=== PATIENT | male | born 1965 | race Caucasian/White ===

== ENCOUNTER 2021-08-19 05:55 | Day surgery (SDC) | payer OTHER ==
[2021-08-11 12:49] VITALS: BMI 33.4
[2021-08-19] MEDS ORDERED: ROPIVACAINE HCL/PF 100 MG/20 ML VIAL ONE (06:54)
[2021-08-19] MEDS ORDERED: MIDAZOLAM HCL 2 MG/2 ML SINGLE DOSE VIAL ONE ×2 (06:54→07:59)
[2021-08-19] MEDS ORDERED: EPINEPHrine 1:1,000 1 MG/1 ML - 30ML VIAL (INJECTION) ONE (07:18)
[2021-08-19] MEDS ORDERED: DEXMEDETOMIDINE HCL 200 MCG/2 ML IVPB ONE (07:29)
[2021-08-19] MEDS ORDERED: KETAMINE HCL 500 MG/10 ML VIAL ONE (07:30)
[2021-08-19] MEDS ORDERED: PROPOFOL 20 ML ONE ×4 (07:50→08:15)
[2021-08-19] MEDS ORDERED: BUPIVACAINE HCL/EPINEPHRINE/PF 30 ML VIAL IJ ONE (07:55)
[2021-08-19] MEDS ORDERED: SUCCINYLCHOLINE CHLORIDE 200 MG/10 ML SYRINGE ONE (08:29)
[2021-08-19] MEDS ORDERED: HYDROmorphone HCL/PF 1 MG/ML VIAL ONE (09:09)
[2021-08-19] MEDS ORDERED: ACETAMINOPHEN 1000 MG/100 ML BAG IVPB ONE (10:05)
[2021-08-19] MEDS ORDERED: ONDANSETRON 4 MG/2 ML VIAL IVPUSH PRN (10:05)
[2021-08-19] MEDS ORDERED: oxyCODONE HCL 5 MG TABLET PO PRN (10:05)
[2021-08-19] MEDS ORDERED: LACTATED RINGERS SOLUTION 1,000 ML IV SCH (10:15)
[2021-08-19 10:57] VITALS: TEMP 97.8
[2021-08-19 11:21] VITALS: BP 115/89; PULSE 85
== END 2021-08-19 12:30 | disposition home or self-care (01) ==
LOC: FASU 05:55
PROVIDERS: ATTEND Orthopaedic Surgery
PROC: 0LQ10ZZ Repair Right Shoulder Tendon, Open Approach (ICD-10-PCS; principal; 2021-08-19 08:27)
PROC: 0RBJ4ZZ Excision of Right Shoulder Joint, Percutaneous Endoscopic Approach (ICD-10-PCS; 2021-08-19 08:27)
DX: M75.111 Incomplete rotator cuff tear or rupture of right shoulder, not specified as traumatic (principal); M75.31 Calcific tendinitis of right shoulder
CPT/HCPCS: 94760; J0131